=== PATIENT | female | born 1960 | race Two or more races ===

== ENCOUNTER 2017-01-19 08:10 | Emergency (ER) | payer OTHER ==
[~2017-01-19] VITALS: Ht 167.6 cm; Wt 79.4 kg
[2017-01-19 08:15] VITALS: BP 191/94
[2017-01-19] MEDS ORDERED: Ketorolac 60mg Inj IM ONE (08:15)
[2017-01-19] MEDS ORDERED: LISINOPRIL5 MG ORAL (08:18)
[2017-01-19] MEDS ORDERED: TENORMIN100 MG ORAL (08:18)
[2017-01-19] MEDS ORDERED: ASPIRIN-LOW81 MG ORAL (08:18)
[2017-01-19] MEDS ORDERED: LOVASTATIN10 MG ORAL (08:18)
--- NOTE | 2017-01-19 08:27 | Emergency Room Report ---
History of Present Illness General Chief Complaint: Multiple Trauma/Fall Source: Patient Present Illness HPI Patient reports that just prior to arrival she was walking down a flight of stairs approximately reported by paramedics as 10 feet Patient had a misstep and essentially fell initially hitting the back of her head Denies any loss of consciousness presents with pain to the top posterior parietal region of the head Pain to the right ring finger Pain to the right large toe Denies any chest pain denies any abdominal pain Denies any focal weakness in the upper extremities Allergies: Coded Allergies: No Known Allergies (Unverified , 01/19/17) Patient History Past Medical History: see triage record Pertinent Family History: none Reviewed Nursing Documentation: PMH: Agreed, PSxH: Agreed Nursing Documentation-PMH Past Medical History: No History, Except For Hx Hypertension: Yes Review of Systems All Other Systems: negative except mentioned in HPI Physical Exam Vital Signs Date Time Temp Pulse Resp B/P (MAP) Pulse Ox O2 Delivery O2 Flow Rate FiO2 01/19/17 08:07 Room Air Sp02 EP Interpretation: reviewed, normal General Appearance: mild distress - in acute pain Head: normocephalic, other - No obvious hematoma however tender on the occipital region Eyes: bilateral eye PERRL, bilateral eye EOMI ENT: hearing grossly normal, normal pharynx, TMs + canals normal, uvula midline Neck: supple, no meningismus, no bony tend, other - Tender on paracervical C3,4 ,5, no midline step-off Respiratory: lungs clear, normal breath sounds, no rhonchi, no respiratory distress, no retraction, no accessory muscle use Cardiovascular #1: normal peripheral pulses, regular rate, rhythm, no edema, no gallop, no JVD, no murmur Gastrointestinal: normal bowel sounds, non tender, soft, no mass, no organomegaly, non-distended, no guarding, no hernia, no pulsatile mass, no rebound Genitourinary: no CVA tenderness Musculoskeletal: other - Tender on palpation of the mid right ring finger, mild ecchymosis, small abrasion to the right large toe distally, tender on palpation Neurologic: oriented x3, responsive, web application dev specialist III-XII nml as tested, motor strength/ tone normal, sensory intact Psychiatric: mood/affect normal Skin: warm/dry, palpation normal, other - as above Lymphatic: normal inspection, no adenopathy Medical Decision Making Diagnostic Impression: Primary Impression: Multiple injuries due to trauma Additional Impressions: Contusion Head injury ER Course Given the patient's presentation imaging studies were obtained no obvious signs of intra-abdominal pathology CT head does not show any signs of active hemorrhage there is a soft tissue injury Other imaging is negative patient has done better with pain medication however still does have a mild headache Patient will require outpatient reevaluation at this time is stable for close followup Other X-Ray Diagnostic Results Other X-Ray Diagnostic Results #1: X-Ray ordered: right hand # of Views/Limited Vs Complete: 3 View Indication: Pain EP Interpretation: Yes Interpretation: no dislocation, no soft tissue swelling, no fractures Impression: No acute disease Electronically Signed by: Cassy Head DO Other X-Ray Diagnostic Results #2: X-Ray ordered: right foot # of Views/Limited Vs Complete: 3 View Indication: Pain EP Interpretation: Yes Interpretation: no dislocation, no soft tissue swelling, no fractures Impression: No acute disease Electronically Signed by: Cassy Head DO CT/MRI/US Diagnostic Results CT/MRI/US Diagnostic Results : Impression CT head no acute disease CT C-spine no acute disease Last Vital Signs Date Time Temp Pulse Resp B/P (MAP) Pulse Ox O2 Delivery O2 Flow Rate FiO2 01/19/17 08:07 Room Air Status: improved Disposition: HOME, SELF-CARE Condition: Improved Scripts Methocarbamol* (ROBAXIN-750*) 750 Mg Tablet 750 MG PO TID, #21 TAB 0 Refills Prov: CASSY HEAD.OEdwin 01/19/17 Hydrocodone Bit/Acetaminophen 5-325* (NORCO 5-325*) 1 Each Tablet 1 TAB ORAL Q6H Y for For Pain, #10 TAB 0 Refills Prov: CASSY HEAD.O. 01/19/17 Ibuprofen* (MOTRIN*) 600 Mg Tablet 600 MG ORAL Q8H Y for For Pain, #30 TAB 0 Refills Prov: CASSY HEAD.O. 01/19/17 Additional Instructions: Patient is provided with the discharge instructions notified to follow up with primary doctor in the next 2-3 days otherwise return to the er with any worsening symptoms. Please note that this report is being documented using [employer] technology. This can lead to erroneous entry secondary to incorrect interpretation by the dictating instrument. CASSY HEAD D.O. Jan 19, 2017 08:27
--- NOTE | 2017-01-19 09:07 | Diagnostic Imaging Report ---
Indication: Head trauma. Headache Technique: Contiguous 5 mm thick transaxial imaging of the head obtained in a Siemens Sensation [address] scanner. Soft tissue and bone windows generated. Total Dose length Product (DLP): [address] Dose Index Volume (CTDIvol): 70.38, 0.15 mGy Comparison: none Findings: The size and configuration of the cortical sulci, basal cisterns, and ventricles are within normal limits for age. There is no mass effect, midline shift, or edema identified. There is no evidence of acute hemorrhage or abnormal intra-axial or extra-axial fluid collections. The bones are unremarkable. There is soft tissue swelling involving the left side of the scalp. Impression: No mass effect, edema or acute bleed. Left scalp contusion The CT scanner at [facility] is accredited by the [employer] and the scans are performed using dose optimization techniques as appropriate to a performed exam including Automatic Exposure control.
--- NOTE | 2017-01-19 09:12 | Diagnostic Imaging Report ---
Indication: Neck pain. Trauma Technique: Continuous helical imaging of the cervical spine was obtained transaxially from the skull base to the upper thoracic spine. 2-D coronal and sagittal reformatted images were obtained. Total Dose length Product (DLP): [address] Dose Index Volume (CTDIvol): 0.25, 25.06 mGy Comparison: None Findings: There is no evidence of an acute fracture or malalignment. Atlantoaxial alignment appears normal. Height and configuration of the vertebral bodies and intervertebral discs are within normal limits. Uncovertebral joints and facets are unremarkable. There is no soft tissue swelling. Impression: Negative cervical spine CT The CT scanner at [facility] is accredited by the [employer] and the scans are performed using dose optimization techniques as appropriate to a performed exam including Automatic Exposure control.
[2017-01-19] MEDS ORDERED: IBUPROFEN600 MG ORAL (09:55)
[2017-01-19] MEDS ORDERED: ROBAXIN-750750 MG PO (09:55)
[2017-01-19] MEDS ORDERED: NORCO 5-325 TA1 EACH ORAL (09:55)
[2017-01-19 10:05] VITALS: BP 166/120
--- NOTE | 2017-01-19 10:09 | Diagnostic Imaging Report ---
Indication: pain Findings: 3 views of the right hand were obtained. Normal bony mineralization and alignment are demonstrated. No acute fractures, erosions, or periosteal reaction are seen. Soft tissues are unremarkable. Impression: No acute findings.
--- NOTE | 2017-01-19 10:11 | Diagnostic Imaging Report ---
Indication: Pain Comparison: None Findings: 3 views of the right foot were obtained. The cortical regularity noted along the anterolateral aspect of the cuboid. There maybe a mild avulsive type injury along the cortical surface. No definite fracture is identified. There is a spurring of the calcaneal tuberosity. Impression: Suspected mild superficial cortical avulsion or injury along the anterolateral cuboid.
== END 2017-01-19 10:05 | disposition home or self-care (01) ==
LOC: EDBD 08:10 → EMR 08:44
DX: S00.93XA Contusion of unspecified part of head, initial encounter (principal); W10.9XXA Fall (on) (from) unspecified stairs and steps, initial encounter; Y93.9 Activity, unspecified; R51 Headache; I10 Essential (primary) hypertension; M79.644 Pain in right finger(s); M79.674 Pain in right toe(s)
CPT/HCPCS: 70450; 72125; 96372; 99284